=== PATIENT | female | born 1940 | race Caucasian/White ===

== ENCOUNTER 2016-09-17 10:42 | Emergency (ER) | payer MEDICARE ==
[2016-09-17 11:08] VITALS: BP 126/66
--- NOTE | 2016-09-17 11:13 | UC ---
Bite Injury/Animal HPI - HPI Summary HPI Summary: complaint of vinay avilez bite in her groin couldn't get the mouth out thinks it has been attached for more than 24-30 hours denies rash used antibiotic cream and alcohol - History of Current Complaint Chief Complaint: UCSkin Stated Complaint: TICK BITE Time Seen by Provider: 09/17/16 10:56 Hx Obtained From: Patient - Allergies/Home Medications Allergies/Adverse Reactions: Allergies Allergy/AdvReac Type Severity Reaction Status Date / Time SESASONAL ALLERGIES Allergy Intermediate Eyes Uncoded 11/12/13 08:07 Itchy/Swollen/Red/Watery PMH/Surg Hx/FS Hx/Imm Hx Previously Healthy: Yes Endocrine History Of: Reports: Thyroid Disease - HYPOTHYROIDISM Denies: Diabetes Cardiovascular History Of: Denies: Cardiac Disorders, Hypertension Respiratory History Of: Reports: Asthma - USES INHALER DAILY, Bronchitis - IN THE PAST Denies: COPD Cancer History Of: Denies: Breast Cancer - Surgical History Surgical History: Yes Surgery Procedure, Year, and Place: TUBAL LIGATION-1977. VARICOSE VEIN RIGHT LEG-1977. RIGHT HAND - [facility]. RIGHT ARM NERVE DECOMPRESSION-- [facility]. BILAT CATARACT--[facility] left hand surgery - Family History Known Family History: Positive: Hypertension Negative: Cardiac Disease, Diabetes - Social History Occupation: Retired Lives: Alone Alcohol Use: Weekly Alcohol Amount: 3 X WEEKLY Substance Use Type: None Smoking Status (MU): Never Smoked Tobacco Type: Cigarettes Amount Used/How Often: 1 PPD Length of Time of Smoking/Using Tobacco: 20 YRS Have You Smoked in the Last Year: No When Did the Patient Quit Smoking/Using Tobacco: 1978 Review of Systems Constitutional: Negative Skin: Other - tick bite Eyes: Negative ENT: Negative Respiratory: Negative Cardiovascular: Negative Gastrointestinal: Negative Genitourinary: Negative Motor: Negative Neurovascular: Negative Musculoskeletal: Negative Neurological: Negative Psychological: Negative All Other Systems Reviewed And Are Negative: Yes Physical Exam Triage Information Reviewed: Yes Appearance: No Pain Distress, Well-Nourished Vital Signs: Initial Vital Signs Temp 98 F 09/17/16 10:51 Pulse 64 09/17/16 10:51 Resp 16 09/17/16 10:51 BP 126/66 09/17/16 10:51 Pulse Ox 99 09/17/16 10:51 Vital Signs Reviewed: Yes Eyes: Positive: Conjunctiva Clear ENT: Positive: Normal ENT inspection Neck: Positive: No Lymphadenopathy Respiratory: Positive: Lungs clear, Normal breath sounds, No respiratory distress, No accessory muscle use Cardiovascular: Positive: RRR, No Murmur, Pulses Normal Neurological: Positive: Alert Psychological Exam: Normal Skin: Positive: Other - left groin -tick bite Procedures - Procedure Summary Procedure Summary: tick head removed with splinter forceps with no difficulty Bite Injury Course/Dx - Course Course Of Treatment: exam completed. tick head removed from groing. will give prophylactic dosage of doxycycline and followup with PCP - Differential Dx/Diagnosis Differential Diagnosis/HQI/PQRI: Other - tick bite Provider Diagnoses: tick bite Discharge - Discharge Plan Condition: Stable Disposition: HOME Prescriptions: DOXYcycline CAP(*) [DOXYcycline 100MG CAP(*)] 100 mg PO DAILY #2 cap Patient Education Materials: Tick Bite (ED) Referrals: Ranjit Ayala MD [Primary Care Provider] - Additional Instructions: Please take antibiotic as directed Increase fluids and rest Take acetaminophen or ibuprofen for fever or pain Please review your discharge instructions. If your symptoms do not improve please call your primary care provider or return to urgent care. Your blood pressure is elevated. Please contact your primary care provider within 1 day -4 weeks for further evaluation.
== END 2016-09-17 11:40 | disposition home or self-care (01) ==
LOC: UCEAST 10:42
DX: S30.861A Insect bite (nonvenomous) of abdominal wall, initial encounter (principal); W57.XXXA Bitten or stung by nonvenomous insect and other nonvenomous arthropods, initial encounter; E03.9 Hypothyroidism, unspecified; J45.909 Unspecified asthma, uncomplicated
CPT/HCPCS: 99212; G0463

== ENCOUNTER 2016-11-08 06:41 | Day surgery (SDC) | payer MEDICARE ==
--- NOTE | 2016-11-02 21:10 | HP ---
PREOPERATIVE HISTORY AND PHYSICAL EXAM: DATE OF ADMISSION/SURGERY: 11/08/16 [facility] DATE OF OFFICE VISIT/ENCOUNTER: 11/02/16 ATTENDING SURGEON: Yayo Carrion MD (DICTATED BY BALDEMAR DESHPANDE) PROCEDURE: Right small finger Dupuytren's excision. CHIEF COMPLAINT: Right small finger Dupuytren's contracture. 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 She has had 2 prior surgeries and 1 needle aponeurotomy. Currently, she is complaining of a Dupuytren's contracture that affects her right small finger, particularly the PIP joint. It is quite bothersome and it makes it very difficult for her to get her hand in her pocket and do other typical activities of daily life. She is interested in pursuing surgical intervention for this problem at this time and has consented to proceed with a right small finger Dupuytren's excision. PAST MEDICAL HISTORY: 1. Hypothyroidism. 2. Asthma. 3. History of Dupuytren's contractures, bilateral hands. PAST SURGICAL HISTORY: 1. Dupuytren's contracture excision, bilateral hands. 2. Tubal ligation. 3. Right elbow surgery. 4. Varicose vein stripping. CURRENT MEDICATIONS: 1. Cetirizine HCl 10 mg daily. 2. Levothyroxine sodium 50 mcg daily. 3. Symbicort 80/4.5 mcg/act 2 puffs twice daily p.r.n. ALLERGIES: No known drug allergies. FAMILY MEDICAL HISTORY: Stroke and emphysema. SOCIAL HISTORY: The patient is retired. She is a former smoker, she quit in 1978. Prior to that, she smoked for 20 years up to a pack per day. She denies illicit drug use and does admit to alcohol use on occasion. REVIEW OF SYSTEMS: General: Negative for fevers, chills, or night sweats. No known anesthesia problems. HEENT: Negative for headache, lightheadedness, or syncopal episodes. Integumentary: Negative for abrasions, lesions, or open wounds. Cardiothoracic: Negative for hypertension, chest pain, palpitations, or edema. Pulmonary: Negative for shortness of breath with exertion, chronic cough, or COPD. GI: Negative for nausea, vomiting, diarrhea, constipation, or GERD. : Negative for nocturia, urinary frequency, urgency, history of UTIs, or kidney problems. Musculoskeletal: Positive for current complaint, otherwise negative. Neurological: Negative for paresthesias, numbness, history of seizure, stroke, or epilepsy. Endocrine: Positive for hypothyroidism. Negative for diabetes. Hematologic: Negative for easy bruising, anemia, excessive bleeding, or history of DVT. Infectious Disease: Negative for history of MRSA, hepatitis C, or HIV. PHYSICAL EXAMINATION GENERAL: Well-developed, well-nourished, 76-year-old female in no acute distress. HEENT: Normocephalic, atraumatic. Pupils are equal, round, and reactive to light and accommodation. Extraocular movements are intact. NECK: Supple. No palpable lymph nodes. Throat is clear. PULMONARY: Lungs are clear to auscultation bilaterally. No wheezes, rales, or rhonchi. CARDIOVASCULAR: Regular rate and rhythm. S1, S2. No murmurs, rubs, or gallops. No edema. ABDOMEN: Positive bowel sounds, soft, nontender. NEUROLOGICAL: Alert and oriented x3. Cranial nerves II through XII are intact. Sensation is intact to light touch. PERIPHERAL VASCULAR: 2+ radial and ulnar pulses. Negative Eduardo test. MUSCULOSKELETAL: On exam of her right hand, she has a Dupuytren's contracture present at the right small finger with a 60-degree PIP joint contracture. There is no MP joint contracture. The DIP also rest in about 10 degrees of contracture, although passively full extension of that joint can be obtained. She has a prominent cord that runs along the radial aspect of the small finger from the level of the A1 lora down to the DIP joint. There is a bit of Dupuytren's disease a bit more ulnarly on the finger as well but no kasandra abductor cord is present. No contractures are present in the middle or ring fingers. She has well-healed and mature surgical scars. ASSESSMENT: Right small finger Dupuytren's contracture. PLAN: The patient is scheduled to undergo a right small finger Dupuytren's excision with Dr. Carrion on 11/08/16. She will return to the office 10 to 14 days postop for followup and suture removal. She is planning on using over-the- counter Tylenol and/or ibuprofen for postoperative pain management. Should she need something stronger than that, it will be prescribed postoperatively. BALDEMAR DESHPANDE [id number]/[facility] #: [id number] [facility]
[2016-11-08] MEDS ORDERED: ceFAZolin 2 GM PREMIX(*) 2 GM/50 ML BAG IVPB ONE (06:50)
[2016-11-08] MEDS ORDERED: Bupivacaine 0.25% SDV* 30 ML ONE (07:21)
[2016-11-08] MEDS ORDERED: Ondansetron INJ* 2 MG/ML VIAL IV PRN (07:37)
[2016-11-08] MEDS ORDERED: Acetaminophen TAB* 325 MG PO PRN (07:37)
[2016-11-08] MEDS ORDERED: HYDROcodone/ACETAMIN 5-325 MG* 1 TAB PO PRN (07:37)
[2016-11-08] MEDS ORDERED: DiMENhydriNATE IV* 50 MG/ML VIAL IV PUSH PRN (07:37)
[2016-11-08] MEDS ORDERED: Midazolam* 1 MG/ML 2 ML VIAL (2 MG) ONE (07:39)
[2016-11-08] MEDS ORDERED: fentaNYL* 50 MCG/ML 2 ML VIAL (100 MCG VIAL) ONE (07:39)
[2016-11-08] MEDS ORDERED: Famotidine IV* 10 MG/ML 2 ML (20 mg) ONE (07:51)
[2016-11-08] MEDS ORDERED: Petrolatum 5 GM* 5 GM PACKET ONE (08:04)
[2016-11-08] MEDS ORDERED: Ketorolac INJ* 30 MG/ML 1 ML VIAL ONE (08:26)
[2016-11-08] MEDS ORDERED: EPHEDrine (Pressors)* 50 MG/ML VIAL ONE (08:26)
[2016-11-08] MEDS ORDERED: Propofol* 10 MG/ML 20 ML BTL IV PUSH ONE (08:26)
[2016-11-08] MEDS ORDERED: Dexamethasone IV* 4 MG/ML 1 ML (4 MG) ONE (08:26)
[2016-11-08] MEDS ORDERED: Lidocaine 2% PF * 5 ML VIAL ONE (08:26)
[2016-11-08 09:55] VITALS: BP 108/70
--- NOTE | 2016-11-08 23:10 | OP ---
DATE OF OPERATION: 11/08/16 [facility] DATE OF : 42 SURGEON: Yayo Carrion MD CANS VACUUM TESTER: BALDEMAR Wilkins ANESTHESIOLOGIST: Dr. Hernandez. ANESTHESIA: General. PRE-OP DIAGNOSIS: Recurrent right small finger Dupuytren's contracture. POST-OP DIAGNOSIS: Recurrent right small finger Dupuytren's contracture. OPERATIVE PROCEDURE: Partial palmar fasciectomy, right palm and small finger. INDICATIONS: Lissy is a 76-year-old female who back in the had Dupuytren excision performed by Dr. Lu. The hand has done well, but over the last several years, she has had recurrence of right small finger PIP joint contracture. She has had a needle aponeurotomy performed and that provided minimal change in the disease. She presented to the office and she had pretty notable PIP and small DIP joint contracture as well. The majority of the disease was a retrovascular cord on the radial aspect of the finger. We had talked about risks and benefits including the risks of neurovascular disease and wound problems. She had elected to proceed with surgery. ESTIMATED BLOOD LOSS: 5 mL. COMPLICATIONS: None. FINDINGS: As expected. DESCRIPTION OF PROCEDURE: Lissy was seen in the preoperative holding area. The correct side, site, and procedure were identified. We came back to the operating room where anesthesia was induced. The arm was prepped and draped in the usual fashion. Formal time-out was performed. I began by using her prior Donny excision for the marked skin incision. This was extended distally in Donny type fashion over the rest of the middle phalanx and just a bit out onto the volar aspect of the distal phalanx of the fingertip. Full thickness flaps were raised preserving the underlying dermis. The care was taken to watch for and protect the digital nerve. This was not seen at the current time. Once full thickness flaps were raised, I went ahead and came proximally and released the diseased palmar fascia. Just deep to this , the radial neurovascular bundle was identified. The release was then carried out from the proximal to distal taking care to preserve the neurovascular bundle. When I got down towards the area of A1 lora, I took some time to identify the ulnar digital nerve. This was again identified and protected. Once I got to the level of the proximal phalanx, the radial digital nerve began to became very intertwined with the diseased tissue. It took some time and used tenotomy scissors and the knife to carefully develop the plane and separate the diseased Dupuytren's tissue from the radial neurovascular bundle. This was followed out all the way to the fingertip until the neurovascular bundle was completely exposed. Significant portion of the specimen was handed off. Once I had completely freed up the radial digital neurovascular bundle, I went ahead and retracted this gently ulnarly with the Carolinanell. I then performed the excision of the retrovascular cord, which ran from the proximal phalanx down to the entirety of the middle phalanx and terminating just on the radial aspect of the distal phalanx. Once I had excised this, the finger then came out nice and straight. I then looked for any more diseased tissue. There was just a bit more ulnarly and so I excised this as well. The wound was then irrigated. The skin was then closed with some 5-0 nylon suture. I had back cut the apices of the skin incisions just a bit to provide a little bit more length in the skin on the closure. The finger portion was closed with simple interrupted sutures. The palm portion was closed with some mattress sutures. Once the skin was closed, I infiltrated the operative area with 0.25% Marcaine. The wound was then dressed with Xeroform, 4x4 and sterile Webril. I then deflated the tourniquet and the fingertip pinked up immediately. A volar slab splint was then applied out to the fingertip holding the hand with the MP and IP joints extended. She was then woken up and taken to recovery room in stable condition. [id number]/[facility] #: [id number] PAMELA
== END 2016-11-08 10:15 | disposition home or self-care (01) ==
LOC: OREAST 06:41
PROVIDERS: ATTEND Orthopaedic Surgery Hand Surgery
DX: M72.0 Palmar fascial fibromatosis [Dupuytren] (principal); E03.9 Hypothyroidism, unspecified; J45.909 Unspecified asthma, uncomplicated; Z87.891 Personal history of nicotine dependence
CPT/HCPCS: 88304; A9270-GY; J0690; J1100; J1885; J2250; J2704; J3010

== ENCOUNTER 2017-04-06 16:30 | Emergency (ER) | payer MEDICARE ==
[2017-04-06 16:41] VITALS: BP 106/52
--- NOTE | 2017-04-17 00:36 | UC ---
Flakita Herrera Emily, scribed for Sharan Abarca MD on 04/06/17 at 1652 . Skin Complaint HPI - HPI Summary HPI Summary: This patient is a 76 year old F presenting to urgent with a chief complaint of tick bites to top of head and behind L ear that occurred last night. Pt reports ticks being not engorged upon removal. Pt reports removal of the entirety of both ticks. Symptoms aggravated by nothing. Symptoms alleviated by nothing. Patient denies any other symptoms. - History of Current Complaint Chief Complaint: UCSkin Time Seen by Provider: 04/06/17 16:42 Stated Complaint: TICK BITE Hx Obtained From: Patient Onset/Duration: Sudden Onset, Lasting Hours, Still Present Skin Exposure Onset/Duration: Hours Ago Location: Discrete, Other - Top of head and behind L ear Aggravating Factor(s): Nothing Alleviating Factor(s): Nothing Associated Signs & Symptoms: Positive: Negative - Allergy/Home Medications Allergies/Adverse Reactions: Allergies Allergy/AdvReac Type Severity Reaction Status Date / Time SESASONAL ALLERGIES Allergy Intermediate Eyes Uncoded 04/06/17 16:35 Itchy/Swollen/Red/Watery Home Medications: Home Medications Apixaban* [Eliquis*] 04/06/17 [History] Metoprolol Tartrate TAB* [Lopressor TAB*] 04/06/17 [History] Review of Systems Constitutional: Negative Skin: Other - Positive tick bites All Other Systems Reviewed And Are Negative: Yes PMH/Surg Hx/FS Hx/Imm Hx Previously Healthy: No Endocrine History: Hypothyroidism Respiratory History: Asthma - Surgical History Surgical History: Yes Surgery Procedure, Year, and Place: TUBAL LIGATION-1977. VARICOSE VEIN RIGHT LEG-1977. RIGHT HAND - [facility] [place]. RIGHT ARM NERVE DECOMPRESSION-- [facility]. BILAT CATARACT--. 2013-[facility] [place] left hand surgery - Family History Known Family History: Positive: Hypertension Negative: Cardiac Disease, Diabetes - Social History Occupation: Retired Alcohol Use: Weekly Alcohol Amount: 3 X WEEKLY Substance Use Type: None Smoking Status (MU): Former Smoker Type: Cigarettes Amount Used/How Often: 1 PPD X 20 YEARS Length of Time of Smoking/Using Tobacco: 20 YRS Have You Smoked in the Last Year: No When Did the Patient Quit Smoking/Using Tobacco: 1978 Physical Exam Triage Information Reviewed: Yes Vital Signs: Initial Vital Signs Temp 97.8 F 04/06/17 16:37 Pulse 51 04/06/17 16:37 Resp 16 04/06/17 16:37 BP 106/52 04/06/17 16:37 Pulse Ox 100 04/06/17 16:37 Vital Signs Reviewed: Yes - Additional Comments General: well-appearing, no pain distress Skin: warm, color reflects adequate perfusion, dry. 2 mm erythema on the top of her head, no obvious tick bit parts in that area. Erythematous area of 1 cm behind L ear on mastoid, no obvious tick bite parts in the area. Head: normal Eyes: EOMI, AB ENT: normal Neck: supple, nontender Respiratory: CTA, breath sounds present Cardiovascular: RRR Abdomen: soft, nontender Bowel: present Musculoskeletal: normal, strength/ROM intact Neurological: normal, sensory/motor intact, A&O x3 Psychological: affect/mood appropriate Course/Dx - Diagnoses Provider Diagnoses: TICK BITE Discharge - Discharge Plan Condition: Stable Disposition: HOME Prescriptions: DOXYcycline CAP(*) [DOXYcycline 100MG CAP(*)] 100 mg PO DAILY #2 cap Patient Education Materials: Tick Bite (ED) Referrals: Ranjit Ayala MD [Primary Care Provider] - Additional Instructions: FOLLOW UP WITH YOUR DOCTOR. GET RECHECKED FOR ANY WORSENING OF YOUR CONDITION OR QUESTIONS OR CONCERNS. The documentation as recorded by the Flakita contreras Emily accurately reflects the service I personally performed and the decisions made by me, Sharan Abarca MD.
== END 2017-04-06 16:55 | disposition home or self-care (01) ==
LOC: UCEAST 16:30
DX: S00.06XA Insect bite (nonvenomous) of scalp, initial encounter (principal); W57.XXXA Bitten or stung by nonvenomous insect and other nonvenomous arthropods, initial encounter; Y93.9 Activity, unspecified; Y92.9 Unspecified place or not applicable; E03.9 Hypothyroidism, unspecified; J45.909 Unspecified asthma, uncomplicated; Z87.891 Personal history of nicotine dependence
CPT/HCPCS: 99212; G0463